=== PATIENT | female | born 1985 | race American Indian/Alaskan Native ===

== ENCOUNTER 2017-08-08 12:06 | Emergency (ER) | payer OTHER, BC ==
[2017-08-08 12:18] VITALS: BP 147/84
--- NOTE | 2017-08-08 13:48 | XRay Report ---
RIGHT TIBIA/FIBULA: History: Pain AP and lateral views of the right tibia/fibula demonstrate normal mineralization and contours for this patient's age. No destructive changes are noted and the adjacent soft tissues are normal. IMPRESSION: Unremarkable right tibia/fibula. RIGHT FOOT, 3 views: History: Pain. Normal bone mineralization. There is a subtle minimally displaced fracture at the base of the second metatarsal near the articulation with the cuneiform bones. This is suggestive of a Lisfranc injury. No additional fractures are identified. No joint pathology is detected. There is mild diffuse soft tissue swelling. IMPRESSION: Fracture, second metatarsal base. This appears to represent a Lisfranc injury variant.
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
== END 2017-08-08 16:00 | disposition home or self-care (01) ==
LOC: ED 12:06
DX: S92.321A Displaced fracture of second metatarsal bone, right foot, initial encounter for closed fracture (principal); V49.49XA Driver injured in collision with other motor vehicles in traffic accident, initial encounter; Y93.89 Activity, other specified; Y92.89 Other specified places as the place of occurrence of the external cause; Y99.8 Other external cause status
CPT/HCPCS: 99284

== ENCOUNTER 2017-08-20 10:55 | Day surgery (SDC) | payer BC, OTHER ==
[~2017-08-20 10:55] MED LIST: ANCEF/STERILE WATER 2 GM/20 ML IV NR; LACTATED RINGERS 1,000 ML IV SCH; VERSED IV NR
[2017-08-20] MEDS ORDERED: NACL BACTERIOSTATIC INFILTRATI ONE (11:41)
--- NOTE | 2017-08-20 12:40 | Anesthesia Day of Surgery ---
Anesthesia Day of Surgery - Day of Surgery Patient Examined: Yes Patient H&P Reviewed: Yes Patient is NPO: Yes
--- NOTE | 2017-08-20 12:40 | Anesthesia Consultation ---
Anesthesia Consult and Med Hx Date of service: 08/20/17 - Airway Anesthetic Teeth Evaluation: Good ROM Head & Neck: Adequate Mental/Hyoid Distance: Adequate Mallampati Class: Class I Intubation Access Assessment: Good - Pulmonary Exam CTA: Yes - Cardiac Exam Cardiac Exam: RRR - Pre-Operative Health Status ASA Pre-Surgery Classification: ASA1 Proposed Anesthetic Plan: General - Hematic Hx Anemia: Yes (child)
[2017-08-20] MEDS ORDERED: DIPRIVAN 10 MG/ML IV ONE ×3 (12:51→14:04)
[2017-08-20] MEDS ORDERED: VERSED ONE (12:51)
[2017-08-20] MEDS ORDERED: SUBLIMAZE ONE (12:51)
[2017-08-20] MEDS ORDERED: PEPCID PO NR (13:00)
[2017-08-20] MEDS ORDERED: ZOFRAN ONE (13:51)
[2017-08-20] MEDS ORDERED: DECADRON ONE (13:51)
[2017-08-20] MEDS ORDERED: TORADOL ONE (13:51)
[2017-08-20] MEDS ORDERED: XYLOCAINE MPF 2% ONE (14:00)
[2017-08-20] MEDS ORDERED: DILAUDID ONE (14:03)
[2017-08-20] MEDS ORDERED: MARCAINE 0.25% INFILTRATI ONE ×2 (14:07→14:15)
--- NOTE | 2017-08-20 14:38 | Procedure Note ---
Date of procedure: 08/20/17 Pre-op diagnosis: displaced right second tarsometatarsal joint fracture separation Post-op diagnosis: same Procedure: Closed reduction percutaneous cannulated screw fixation right second tarsometatarsal joint Procedure The patient was brought to the OR placed aortic table in supine position following induction and intubation by anesthesia patient's right lower extremity was prepped and draped in the usual sterile manner. A timeout procedure was done to identify the patient and the correct operative site. Next fluoroscopy was brought in and under fluoroscopic control the fracture separation was reduced a threaded K wire was then inserted across the medial cuneiform into the base of the second metatarsal again under C-arm direction following this a 38 mm x 4.0 cannulated screw was inserted again under direct C- arm visualization the fracture and separation was reduced and stabilized again the AP and lateral views were obtained next the wound was irrigated and a single stitch was applied to the stab wound following us a well-padded posterior mold was applied. The patient tolerated the procedure there were no complications and she was sent to postanesthesia recovery in stable condition Anesthesia: MAC Surgeon: SWATI BRENNER Estimated blood loss: minimal Pathology: none Condition: stable Disposition: PACU
--- NOTE | 2017-08-20 14:40 | XRay Report ---
RIGHT FOOT, 3 VIEWS History: Closed reduction of second metatarsal fracture Findings: 3 fluoroscopic images of the right foot were obtained during surgery. The images demonstrate placement of a single orthopedic screw in the mid foot transversing the medial cuneiform and second metatarsal base. Alignment is anatomic. The remaining bones are within normal limits. Please correlate with the procedural report as needed. Impression: Surgical changes in the right foot as described.
[2017-08-20] MEDS ORDERED: NORCO 5/325 PO PRN (14:57)
[2017-08-20 16:11] VITALS: BP 121/75
== END 2017-08-20 16:06 | disposition home or self-care (01) ==
LOC: OR 10:55
PROVIDERS: ATTEND Orthopaedic Surgery
DX: S93.324A Dislocation of tarsometatarsal joint of right foot, initial encounter (principal); X58.XXXA Exposure to other specified factors, initial encounter; Y93.89 Activity, other specified; Y92.89 Other specified places as the place of occurrence of the external cause; Y99.8 Other external cause status
CPT/HCPCS: 28605; 73630; 97116; 97161; C1713; J0690; J1100; J1170; J1885; J2250; J2405; J2704; J3010; J7120

== ENCOUNTER 2017-10-15 10:00 | Outpatient (CLI) | payer BC ==
--- NOTE | 2017-10-15 11:15 | XRay Report ---
XRAY RIGHT FOOT THREE VIEWS: 10/15/17 10:00:00 CLINICAL: Pain COMPARISON: 08/08/17 FINDINGS: A single screw traverses the first cuneiform and extends through the base of the second metatarsal. The previously described fracture at the base of the second metatarsal has healed and there is no longer a gap between the first and second metatarsal bases. The rest of the exam is normal. IMPRESSION: Status post ORIF of a proximal second metatarsal fracture.
== END 2017-10-15 10:01 | disposition home or self-care (01) ==
LOC: XRAY 10:00
PROVIDERS: ATTEND Orthopaedic Surgery
DX: M79.671 Pain in right foot (principal); Z98.890 Other specified postprocedural states

== ENCOUNTER 2020-08-05 09:26 | Emergency (ER) | payer BC ==
[2020-08-05 09:33] VITALS: BP 149/92
--- NOTE | 2020-08-05 09:33 | Event Note ---
ED Screening Note Date of service: 08/05/20 Time: 09:32 ED Screening Note: Patient sent here by her PCP for H&H of 6.5 She states her labs were drawn last History of uterine fibroids and heavy bleeding Dramatic fatigue current Denies history of blood transfusions This initial assessment/diagnostic orders/clinical plan/treatment(s) is/are subject to change based on patients health status, clinical progression and re- assessment by fellow clinical providers in the ED. Further treatment and workup at subsequent clinical providers discretion. Patient/guardian urged not to elope from the ED as their condition may be serious if not clinically assessed and managed. Initial orders include: Labs
[2020-08-05 10:20] LABS: Basophils % (Auto) 0.6 % (0.0-1.8); Eosinophils % (Auto) 0.5 % (0.0-4.3); Hematocrit 23.3 % (30.3-42.9); Lymphocytes # (Auto) 1.8 K/mm3 (1.2-5.4); Lymphocytes % (Auto) 31.8 % (13.4-35.0); Mean Corpuscular HGB Conc 30 % (30-34); Monocytes # (Auto) 0.4 K/mm3 (0.0-0.8); Monocytes % (Auto) 7.7 % (0.0-7.3); Platelet Count 378 K/mm3 (140-440); Red Blood Count 3.61 M/mm3 (3.65-5.03)
[2020-08-05 10:28] LABS: Mean Corpuscular Volume 65 fl (79-97); Red Cell Distribution Width 22.8 % (13.2-15.2)
[2020-08-05 10:31] LABS: INR 1.05 (0.87-1.13)
[2020-08-05 10:32] LABS: Partial Thromboplastin Time 26.4 Sec. (24.2-36.6)
[2020-08-05 10:41] LABS: Alanine Aminotransferase 12 units/L (7-56); Albumin 4.2 g/dL (3.9-5); BUN/Creatinine Ratio 9; Blood Urea Nitrogen 7 mg/dL (7-17); Calcium 9.2 mg/dL (8.4-10.2); Hemolysis Index 2
--- NOTE | 2020-08-05 14:59 | Emergency Department Report ---
ED General Adult HPI - General Chief complaint: Recheck/Abnormal Lab/Rx Stated complaint: LOW BLOOD COUNT/REF BY JOSE Time Seen by Provider: 08/05/20 09:32 Source: patient Mode of arrival: Ambulatory Limitations: No Limitations - History of Present Illness Initial comments: Patient is 34 years old female with history of fibroid. Patient presented to [facility] ER after she received a call from her primary care physician stating that her hemoglobin is 6.5 and she need to come to the emergency room for blood transfusion. Patient stated that she went to her primary care physician 2 days ago for lightheadedness and they did a blood work at that time. Patient stated that she had her menstrual cycle at that time and it was heavy however bleeding stopped 2 days ago. Patient is not actively bleeding now. Patient currently denying any dizziness or shortness of breath. She stated that she just feels weak all over. She denied any fever, chills, vaginal discharge, nausea or vomiting. - Related Data Home Medications Medication Instructions Recorded Confirmed Last Taken Multivit-Min/FA/Lycopen/Lutein 1 each PO DAILY 08/16/17 08/20/17 08/13/17 [Centrum Silver Tablet] Previous Rx's Medication Instructions Recorded Last Taken Type HYDROcodone/ACETAMINOPHEN 1 each PO Q4-6H #20 tablet 08/20/17 Unknown Rx [Hydrocodon-Acetaminophen 5-325] Allergies Allergy/AdvReac Type Severity Reaction Status Date / Time No Known Allergies Allergy Verified 08/16/17 15:01 ED Review of Systems ROS: Stated complaint: LOW BLOOD COUNT/REF BY JOSE Other details as noted in HPI Comment: All other systems reviewed and negative Constitutional: denies: chills, fever Respiratory: denies: cough, shortness of breath, SOB with exertion Cardiovascular: denies: chest pain, palpitations Gastrointestinal: denies: abdominal pain, nausea, vomiting Genitourinary: abnormal menses ED Past Medical Hx - Past Medical History Previous Medical History?: Yes Hx Hypertension: No Hx HIV: No Additional medical history: fibroids - Surgical History Past Surgical History?: Yes Additional Surgical History: x 1 - Social History Smoking Status: Never Smoker Substance Use Type: None - Medications Home Medications: Home Medications Medication Instructions Recorded Confirmed Last Taken Type Multivit-Min/FA/Lycopen/Lutein 1 each PO DAILY 08/16/17 08/20/17 08/13/17 History [Centrum Silver Tablet] HYDROcodone/ACETAMINOPHEN 1 each PO Q4-6H #20 tablet 08/20/17 Unknown Rx [Hydrocodon-Acetaminophen 5-325] ED Physical Exam - General Limitations: No Limitations General appearance: alert, in no apparent distress - Head Head exam: Present: atraumatic, normocephalic, normal inspection - Eye Eye exam: Present: normal appearance - ENT ENT exam: Present: normal exam, normal orophraynx, mucous membranes moist - Neck Neck exam: Present: normal inspection. Absent: tenderness, meningismus - Respiratory Respiratory exam: Present: normal lung sounds bilaterally - Cardiovascular Cardiovascular Exam: Present: regular rate, normal rhythm, normal heart sounds. Absent: gallop - GI/Abdominal GI/Abdominal exam: Present: soft, normal bowel sounds. Absent: distended, tende rness, guarding, rebound, rigid, mass, bruit, pulsatile mass, hernia - Extremities Exam Extremities exam: Present: normal inspection, full ROM, normal capillary refill - Back Exam Back exam: Present: normal inspection, full ROM. Absent: CVA tenderness (R), CVA tenderness (L) - Neurological Exam Neurological exam: Present: alert, oriented X3, CN II-XII intact, normal gait, reflexes normal. Absent: motor sensory deficit - Psychiatric Psychiatric exam: Present: normal mood - Skin Skin exam: Present: warm, intact, normal color ED Course Vital Signs 08/05/20 09:30 Temperature 98.6 F Pulse Rate 103 H Respiratory 18 Rate Blood Pressure 149/92 O2 Sat by Pulse 99 Oximetry ED Medical Decision Making - Lab Data Result diagrams: 08/05/20 09:41 08/05/20 09:41 - Medical Decision Making Patient is 34 years old female with history of fibroid. Patient presented to the ER after she received a call from her primary care physician stating that her hemoglobin is 6.5 and she need to come to the emergency room for blood transfusion. Patient stated that she went to her primary care physician 2 days ago for lightheadedness and they did a blood work at that time. Patient stated that she had her menstrual cycle at that time and it was heavy however bleeding stopped 2 days ago. Patient is not actively bleeding now. Patient currently denying any dizziness or shortness of breath. She stated that she just feels weak all over. She denied any fever, chills, vaginal discharge, nausea or vomiting. Lab reviewed and showed a hemoglobin of 7. MCV is 65 indicating chronic iron deficiency anemia. Patient is taking [id number] iron supplement. Patient at this moment does not need a blood transfusion. I will start the patient on iron pill with Colace and I strongly advised the patient to follow-up with her pet food deboner. Patient stated that she already had a appointment with her pet food deboner this week. Patient advised to return to the ER if she develop any new symptoms. Critical care attestation.: If time is entered above; I have spent that time in minutes in the direct care of this critically ill patient, excluding procedure time. ED Disposition Clinical Impression: Iron deficiency anemia, Uterine fibroid Disposition: - TO HOME OR SELFCARE Is pt being admited?: No Condition: Stable Instructions: Preventing Iron Deficiency Anemia, Adult, Uterine Fibroids, [id number] Referrals: PRIMARY CARE, [Primary Care Provider] - 3-5 Days Forms: Work/School Release Form(ED)
== END 2020-08-05 15:23 | disposition home or self-care (01) ==
LOC: ED 09:26
DX: D50.9 Iron deficiency anemia, unspecified (principal); D25.9 Leiomyoma of uterus, unspecified; Z98.890 Other specified postprocedural states; Z79.899 Other long term (current) drug therapy
CPT/HCPCS: 36415; 80053; 84703; 85025; 85610; 85730; 86850; 86900; 86901